=== PATIENT | female | born 1960 | race Caucasian/White ===

== ENCOUNTER 2019-12-21 17:18 | Emergency (ER) | payer MEDICARE, MEDICAID ==
[~2019-12-21] VITALS: Ht 162.5 cm; Wt 108.9 kg
[~2019-12-21 17:18] MED LIST: ACTOS30 MG; AMBIEN10 M1 PO; AMBIEN5 MG; ASPIRIN81 M1 PO; AUGMENTIN 875 M1 TAB PO; BENAZEPRIL HCL; BENAZEPRIL40 MG PO; CIPRODEX 0.3%-7.5 ML OT; COUMADIN5 MG PO; COUMADIN7.5 M1 PO; COUMADIN7.5 MG; CRESTOR40 M1 PO; DAYPRO600 M1 PO; DIFLUCAN150 MG PO; ENTRESTO 24 MG1 EACH PO; ENTRESTO 49 MG1 EACH PO; FENOFIBRATE160 MG PO; FLUOXETINE HCL20 MG; GABAPENTIN300 M1; GABAPENTIN300 MG PO; HUMALOG100 U/ML; HUMALOG100 U/ML SC; INVOKANA300 M1 PO; LANTUS SOL100 UNIT/1 SQ; LASIX40 MG; LASIX40 MG PO; LIPITOR40 MG PO; LOPRESSOR100 MG; LOPRESSOR50 M1 PO; LOVAZA1 GM; LOVAZA1 GM PO; Lantus SC; METFORMIN HCL1000 MG PO; METFORMIN1000 MG PO; METOPROLOL SUC100 MG PO; MOTRIN800 MG PO; NEURONTIN300 MG PO; NITROSTAT0.4 MG SL; NORCO 5-325 TA1 EACH PO; NOVOLOG10 ML SC; PERCOCET 325 MG1 TA6; PERCOCET 325 MG1 TA6 PO; PLAVIX75 M1 PO; PLAVIX75 MG; PROZAC20 MG PO; TRAMADOL HCL50 MG PO; VENTOLIN; VICODIN 5/500 505 MG PO; VICTOZA 3-PAK6 MG/ML SC; VICTOZA6 MG/ML SC; VITAMIN D350 MC2 PO; VITAMIN D400 IU; Vicodin 5/500 505 MG PO; WELCHOL625 MG; WELCHOL625 MG PO
== END 2019-12-21 20:55 | disposition home or self-care (01) ==
LOC: ED 17:18
DX: S83.92XA Sprain of unspecified site of left knee, initial encounter (principal); Z79.899 Other long term (current) drug therapy; Z79.84 Long term (current) use of oral hypoglycemic drugs; Z91.041 Radiographic dye allergy status; X50.1XXA Overexertion from prolonged static or awkward postures, initial encounter; Y93.89 Activity, other specified; Y92.89 Other specified places as the place of occurrence of the external cause; Y99.8 Other external cause status

== ENCOUNTER → 2020-01-01 | Outpatient (CLI) | payer MEDICARE, MEDICAID | END | disposition home or self-care (01) | LOC: ORTHO 00:59 | PROVIDERS: ATTEND Orthopaedic Surgery | DX: M17.12 Unilateral primary osteoarthritis, left knee (principal) ==

== ENCOUNTER → 2020-01-08 | Outpatient (CLI) | payer MEDICARE, MEDICAID ==
[~2020-01-08] MED LIST changes: +ALDACTONE25 M1 PO; +BASAG SOL SC; +BYDUREON P2 MG/0.65 SQ; +CLARITIN10 MG PO; +FARXIGA10 M1 PO; +KLOR-CON M2020 ME1 PO; +LOSARTAN POTASS25 M1 PO; +METOPROLOL SUCC25 M2 PO; +ROSUVASTATIN CA40 MG PO; +SINGULAIR10 M1 PO
== END | disposition home or self-care (01) ==
LOC: MAMMO 16:00
PROVIDERS: ATTEND Family Medicine
DX: Z12.31 Encounter for screening mammogram for malignant neoplasm of breast (principal)

== ENCOUNTER 2020-01-25 15:15 | Inpatient (IN) | payer MEDICARE, MEDICAID ==
[~2020-01-25] VITALS: Ht 163.8 cm; Wt 105.7 kg
[2020-01-25] VITALS (7 sets, daily range): BP systolic 70–91; BP diastolic 00–57
[~2020-01-25 15:15] MED LIST changes: -ALDACTONE25 M1 PO; -BASAG SOL SC; -BYDUREON P2 MG/0.65 SQ; -CLARITIN10 MG PO; -FARXIGA10 M1 PO; -KLOR-CON M2020 ME1 PO; -LOSARTAN POTASS25 M1 PO; -METOPROLOL SUCC25 M2 PO; -ROSUVASTATIN CA40 MG PO; -SINGULAIR10 M1 PO
[2020-01-25 16:09] LABS: BASO # 0.1 10*3/uL (0.0-0.1); BASO % 0.5 % (0.0-1.0); EOS # 0.1 10*3/uL (0.0-0.4); EOS % 0.5 % (1.0-4.0); HEMATOCRIT 44.9 % (37.0-47.0); LYMPH # 3.7 10*3/uL (1.3-4.4); LYMPH % 39.9 % (27.0-41.0); MEAN CELL VOLUME 96.1 fl (81.0-99.0); MEAN CORPUSCULAR HGB 31.3 pg (27.0-31.0); MEAN CORPUSCULAR HGB CONC 32.5 g/dl (33.0-37.0); MEAN PLATELET VOLUME 10.1 fl (9.6-12.3); MONO # 0.6 10*3/uL (0.1-1.0); MONO % 6.5 % (3.0-9.0); NEUT # 4.9 10*3/uL (2.3-7.9); NEUT % 52.3 % (47.0-73.0); PLATELET COUNT AUTOMATED 273 10*3/uL (130-400); RED BLOOD COUNT 4.67 10*6/uL (4.10-5.10); RED CELL DISTRI WIDTH 13.3 % (0-14.5); WHITE BLOOD COUNT 9.3 10*3/uL (4.8-10.8)
[2020-01-25 16:21] LABS: ACT PARTIAL THROMBO TIME 25.9 SECONDS (20.0-32.1)
[2020-01-25 16:26] LABS: ALBUMIN 3.8 gm/dl (3.1-4.5); ALKALINE PHOSPHATASE 58 U/L (45-117); BUN 41 mg/dl (7-24); CHLORIDE 105 mmol/L (98-107); CREATININE 1.56 mg/dL (0.55-1.02); LIPASE 321 U/L (73-393); POTASSIUM 4.7 mmol/L (3.5-5.1); SGOT/AST 14 IU/L (3-35); SGPT/ALT 32 U/L (12-78); SODIUM 132 mmol/L (136-145); TROPONIN I < 0.015 ng/ml (<0.045)
[2020-01-26] VITALS (15 sets, daily range): BP systolic 91–116; BP diastolic 30–77
[2020-01-26 03:21] LABS: BILIRUBIN Negative (Negative); BLOOD 1+ (Negative); CLARITY Cloudy (Clear); COLOR Yellow (Yellow); GLUCOSE 3+ (Negative); KETONE Trace (Negative); LEUKO ESTERASE Trace (Negative); NITRITE Negative (Negative); SPECIFIC GRAVITY 1.025 (1.001-1.030); UROBILINOGEN 0.2 E.U./dl (0.0-1.0)
[2020-01-26 03:52] LABS: BACTERIA 3+; EPITHELIAL CELLS TNTC; WBC 41-50 wbc/hpf (0-5)
[2020-01-26 06:05] LABS: BASO % 0.5 % (0.0-1.0); EOS # 0.1 10*3/uL (0.0-0.4); EOS % 1.3 % (1.0-4.0); HEMATOCRIT 38.8 % (37.0-47.0); LYMPH # 3.7 10*3/uL (1.3-4.4); LYMPH % 42.1 % (27.0-41.0); MEAN CELL VOLUME 98.7 fl (81.0-99.0); MEAN CORPUSCULAR HGB 32.1 pg (27.0-31.0); MEAN CORPUSCULAR HGB CONC 32.5 g/dl (33.0-37.0); MEAN PLATELET VOLUME 10.2 fl (9.6-12.3); MONO # 0.7 10*3/uL (0.1-1.0); MONO % 7.8 % (3.0-9.0); NEUT # 4.2 10*3/uL (2.3-7.9); NEUT % 48.1 % (47.0-73.0); PLATELET COUNT AUTOMATED 214 10*3/uL (130-400); RED BLOOD COUNT 3.93 10*6/uL (4.10-5.10); RED CELL DISTRI WIDTH 13.2 % (0-14.5); WHITE BLOOD COUNT 8.8 10*3/uL (4.8-10.8)
[2020-01-26 06:29] LABS: ALBUMIN 3.2 gm/dl (3.1-4.5); BUN 37 mg/dl (7-24); CHLORIDE 111 mmol/L (98-107); CHOLESTEROL 64 mg/dL (<200); CREATININE 1.14 mg/dL (0.55-1.02); HDL CHOLESTEROL 24 mg/dl (40-60); POTASSIUM 4.4 mmol/L (3.5-5.1); SGOT/AST 22 IU/L (3-35); SGPT/ALT 34 U/L (12-78); SODIUM 138 mmol/L (136-145); TRIGLYCERIDES 291 mg/dl (<150); VLDL CHOLESTEROL 58 mg/dL (6-40)
[2020-01-26 06:36] LABS: ALKALINE PHOSPHATASE 45 U/L (45-117); FREE T4 0.88 ng/dl (0.76-1.46); THYROID STIM HORMONE (HS) 0.595 uIU/ml (0.358-4.75); TOTAL PROTEIN 6.3 gm/dL (6.4-8.2)
[2020-01-26 08:01] LABS: VITAMIN D, 25-HYDROXY 28.2 ng/mL (30-100)
[2020-01-26 08:02] LABS: PTH INTACT 8.3 pg/mL (18.5-88.0)
[2020-01-27 00:05] VITALS: BP 115/64
[2020-01-27 05:18] VITALS: BP 92/45
[2020-01-27 05:54] LABS: ALBUMIN 3.5 gm/dl (3.1-4.5); CHLORIDE 108 mmol/L (98-107); SODIUM 138 mmol/L (136-145)
[2020-01-27 05:57] LABS: ALKALINE PHOSPHATASE 50 U/L (45-117); CREATININE 0.94 mg/dL (0.55-1.02); SGOT/AST 14 IU/L (3-35); SGPT/ALT 33 U/L (12-78)
[2020-01-27 05:58] LABS: BUN 24 mg/dl (7-24)
[2020-01-27 07:06] LABS: BASO % 0.4 % (0.0-1.0); EOS # 0.2 10*3/uL (0.0-0.4); EOS % 1.6 % (1.0-4.0); HEMATOCRIT 40.1 % (37.0-47.0); LYMPH # 4.9 10*3/uL (1.3-4.4); LYMPH % 52.6 % (27.0-41.0); MEAN CELL VOLUME 95.9 fl (81.0-99.0); MEAN CORPUSCULAR HGB 31.6 pg (27.0-31.0); MEAN CORPUSCULAR HGB CONC 32.9 g/dl (33.0-37.0); MEAN PLATELET VOLUME 10.1 fl (9.6-12.3); MONO # 0.7 10*3/uL (0.1-1.0); MONO % 7.6 % (3.0-9.0); NEUT # 3.5 10*3/uL (2.3-7.9); NEUT % 37.6 % (47.0-73.0); PLATELET COUNT AUTOMATED 226 10*3/uL (130-400); RED BLOOD COUNT 4.18 10*6/uL (4.10-5.10); RED CELL DISTRI WIDTH 13.3 % (0-14.5); WHITE BLOOD COUNT 9.3 10*3/uL (4.8-10.8)
[2020-01-27 07:55] VITALS: BP 89/29
[2020-01-27] MEDS ORDERED: ROSUVASTATIN CA40 MG PO (07:59)
[2020-01-27] MEDS ORDERED: BYDUREON P2 MG/0.65 SQ (07:59)
[2020-01-27] MEDS ORDERED: CLARITIN10 MG PO (08:00)
[2020-01-27] MEDS ORDERED: SINGULAIR10 M1 PO (08:02)
[2020-01-27] MEDS ORDERED: ALDACTONE25 M1 PO (08:04)
[2020-01-27] MEDS ORDERED: BASAG SOL SC (08:06)
[2020-01-27] MEDS ORDERED: FARXIGA10 M1 PO (08:07)
[2020-01-27] MEDS ORDERED: KLOR-CON M2020 ME1 PO (08:09)
[2020-01-27 10:35] VITALS: BP 104/34
[2020-01-27 12:09] VITALS: BP 109/52
[2020-01-27] MEDS ORDERED: LOSARTAN POTASS25 M1 PO (13:28)
[2020-01-27] MEDS ORDERED: METOPROLOL SUCC25 M2 PO (13:28)
[2020-01-27 13:54] VITALS: BP 98/39
== END 2020-01-27 19:38 | disposition home or self-care (01) | DRG 314 ==
LOC: ED 15:15 → EDHOLD 17:22
PROVIDERS: Emergency Medicine; Internal Medicine; ADMIT Family Medicine; ATTEND Family Medicine
DX: I95.9 Hypotension, unspecified (principal); N17.0 Acute kidney failure with tubular necrosis; I50.20 Unspecified systolic (congestive) heart failure; E87.1 Hypo-osmolality and hyponatremia; E86.0 Dehydration; I25.10 Atherosclerotic heart disease of native coronary artery without angina pectoris; E78.1 Pure hyperglyceridemia; E78.5 Hyperlipidemia, unspecified; F41.9 Anxiety disorder, unspecified; F32.9 Major depressive disorder, single episode, unspecified; E11.649 Type 2 diabetes mellitus with hypoglycemia without coma; E83.52 Hypercalcemia; F17.210 Nicotine dependence, cigarettes, uncomplicated; Z96.651 Presence of right artificial knee joint; I11.0 Hypertensive heart disease with heart failure; E11.65 Type 2 diabetes mellitus with hyperglycemia; E83.39 Other disorders of phosphorus metabolism; Z91.041 Radiographic dye allergy status; Z90.49 Acquired absence of other specified parts of digestive tract; Z95.0 Presence of cardiac pacemaker; Z82.49 Family history of ischemic heart disease and other diseases of the circulatory system; Z83.3 Family history of diabetes mellitus; Z79.82 Long term (current) use of aspirin; Z79.84 Long term (current) use of oral hypoglycemic drugs; Z79.899 Other long term (current) drug therapy

== ENCOUNTER → 2020-07-03 | Day surgery (SDC) | payer OTHER, MEDICAID ==
[~2020-07-03] VITALS: Ht 163.8 cm; Wt 97.5 kg
[~2020-07-03] MED LIST changes: +ALDACTONE25 M1 PO; +BASAG SOL SC; +BUPROPION HYDR150 M1 PO; +BYDUREON P2 MG/0.65 SQ; +CETIRIZINE10 MG PO; +CLARITIN10 MG PO; +FARXIGA10 M1 PO; +KLOR-CON M2020 ME1 PO; +LANTUS SOL100 UNIT/1 SC; +LOSARTAN POTASS25 M1 PO; +METOPROLOL SUCC25 M2 PO; +ROSUVASTATIN CA40 MG PO; +SINGULAIR10 M1 PO
[2020-07-03 09:05] VITALS: BP 116/70
[2020-07-03 10:54] VITALS: BP 100/53
[2020-07-03 11:07] VITALS: BP 106/54
[2020-07-03 11:25] VITALS: BP 121/72
== END | disposition home or self-care (01) ==
LOC: SDC 06-30 09:30
PROVIDERS: ATTEND Surgery
DX: Z12.11 Encounter for screening for malignant neoplasm of colon (principal); D12.3 Benign neoplasm of transverse colon; I11.0 Hypertensive heart disease with heart failure; I50.9 Heart failure, unspecified; E78.5 Hyperlipidemia, unspecified; G47.00 Insomnia, unspecified; F32.9 Major depressive disorder, single episode, unspecified; E11.40 Type 2 diabetes mellitus with diabetic neuropathy, unspecified; Z86.718 Personal history of other venous thrombosis and embolism; Z95.810 Presence of automatic (implantable) cardiac defibrillator; F17.210 Nicotine dependence, cigarettes, uncomplicated; Z96.651 Presence of right artificial knee joint; Z79.899 Other long term (current) drug therapy

== ENCOUNTER → 2020-12-12 | Outpatient (CLI) | payer OTHER, MEDICAID | END | disposition home or self-care (01) | LOC: COVID19 18:31 | PROVIDERS: ATTEND Internal Medicine | DX: U07.1 COVID-19 (principal) ==

== ENCOUNTER → 2021-03-02 | Outpatient (CLI) | payer OTHER, MEDICAID | END | disposition home or self-care (01) | LOC: RAD 14:15 | PROVIDERS: ATTEND Family Medicine | DX: S32.000A Wedge compression fracture of unspecified lumbar vertebra, initial encounter for closed fracture (principal); M47.814 Spondylosis without myelopathy or radiculopathy, thoracic region; M47.817 Spondylosis without myelopathy or radiculopathy, lumbosacral region; X58.XXXA Exposure to other specified factors, initial encounter ==

== ENCOUNTER → 2021-06-05 | Outpatient (CLI) | payer MEDICARE, MEDICAID | END | disposition home or self-care (01) | LOC: US 10:44 | PROVIDERS: ATTEND Family Medicine | DX: I82.442 Acute embolism and thrombosis of left tibial vein (principal) ==

== ENCOUNTER 2021-07-14 15:14 | Inpatient (IN) | payer MEDICARE, MEDICAID ==
[~2021-07-14] VITALS: Ht 162.6 cm; Wt 94.3 kg
[2021-07-14 15:22] VITALS: BP 111/40
[2021-07-14 15:44] LABS: BASO % 0.4 % (0.0-1.0); EOS # 0.1 10*3/uL (0.0-0.4); EOS % 0.9 % (1.0-4.0); HEMATOCRIT 27.9 % (37.0-47.0); LYMPH # 1.8 10*3/uL (1.3-4.4); LYMPH % 25.8 % (27.0-41.0); MEAN CELL VOLUME 94.9 fl (81.0-99.0); MEAN CORPUSCULAR HGB 29.3 pg (27.0-31.0); MEAN CORPUSCULAR HGB CONC 30.8 g/dl (33.0-37.0); MEAN PLATELET VOLUME 9.2 fl (9.6-12.3); MONO # 0.6 10*3/uL (0.1-1.0); MONO % 7.8 % (3.0-9.0); NEUT # 4.5 10*3/uL (2.3-7.9); NEUT % 64.8 % (47.0-73.0); NUCLEATED RED BLOOD CELL 0.3 % (0.0-0.0); PLATELET COUNT AUTOMATED 424 10*3/uL (130-400); RED BLOOD COUNT 2.94 10*6/uL (4.10-5.10); RED CELL DISTRI WIDTH 16.6 % (0-14.5)
[2021-07-14 16:02] LABS: ALKALINE PHOSPHATASE 102 U/L (45-117); BUN 15 mg/dl (7-24); CHLORIDE 102 mmol/L (98-107); CREATININE 1.05 mg/dL (0.55-1.02); POTASSIUM 4.7 mmol/L (3.5-5.1); SGOT/AST 15 IU/L (3-35); SGPT/ALT 23 U/L (12-78); SODIUM 134 mmol/L (136-145)
[2021-07-14] MEDS ORDERED: CYMBALTA60 MG PO (17:09)
[2021-07-14] MEDS ORDERED: VITAMIN D3125 MC1 PO (17:10)
[2021-07-14] MEDS ORDERED: ELIQUIS5 M1 PO (17:11)
[2021-07-14] MEDS ORDERED: B12 ACTIVE1000 MCG PO (17:11)
[2021-07-14 19:01] VITALS: BP 93/39
[2021-07-15] VITALS (10 sets, daily range): BP systolic 110–139; BP diastolic 55–85
[2021-07-15 05:51] LABS: BUN 13 mg/dl (7-24); CHLORIDE 106 mmol/L (98-107); CREATININE 0.84 mg/dL (0.55-1.02); SODIUM 136 mmol/L (136-145)
[2021-07-15 06:25] LABS: BASO % 0.5 % (0.0-1.0); EOS # 0.1 10*3/uL (0.0-0.4); EOS % 1.9 % (1.0-4.0); HEMATOCRIT 25.9 % (37.0-47.0); LYMPH # 2.5 10*3/uL (1.3-4.4); LYMPH % 39.6 % (27.0-41.0); MEAN CELL VOLUME 94.9 fl (81.0-99.0); MEAN CORPUSCULAR HGB 28.6 pg (27.0-31.0); MEAN CORPUSCULAR HGB CONC 30.1 g/dl (33.0-37.0); MEAN PLATELET VOLUME 9.7 fl (9.6-12.3); MONO # 0.6 10*3/uL (0.1-1.0); NEUT % 47.7 % (47.0-73.0); NUCLEATED RED BLOOD CELL 0.3 % (0.0-0.0); PLATELET COUNT AUTOMATED 431 10*3/uL (130-400); RED BLOOD COUNT 2.73 10*6/uL (4.10-5.10); RED CELL DISTRI WIDTH 16.8 % (0-14.5); WHITE BLOOD COUNT 6.4 10*3/uL (4.8-10.8)
[2021-07-15] MEDS ORDERED: LOSARTAN POTASS25 M1 PO (10:36)
[2021-07-15] MEDS ORDERED: BREO ELLIPTA 11 EACH INH (10:38)
[2021-07-15] MEDS ORDERED: PROAIR RESPICL90 MCG INH (10:38)
[2021-07-15] MEDS ORDERED: HYDROCODONE-AC1 EAC2 PO (10:41)
[2021-07-15] MEDS ORDERED: SEPTDS PO (10:41)
[2021-07-16] VITALS: BP 116/41
[2021-07-16 04:57] LABS: BUN 12 mg/dl (7-24); CHLORIDE 107 mmol/L (98-107); CREATININE 0.87 mg/dL (0.55-1.02); POTASSIUM 3.5 mmol/L (3.5-5.1); SODIUM 138 mmol/L (136-145)
[2021-07-16 04:59] LABS: IRON 17 ug/dL (50-170); LDH 176 U/L (84-246); TOTAL IRON BINDING CAPACITY 375 ug/dl (250-450)
[2021-07-16 06:21] LABS: BASO % 0.5 % (0.0-1.0); EOS # 0.2 10*3/uL (0.0-0.4); EOS % 2.2 % (1.0-4.0); HEMATOCRIT 26.7 % (37.0-47.0); LYMPH # 2.8 10*3/uL (1.3-4.4); LYMPH % 34.8 % (27.0-41.0); MEAN CORPUSCULAR HGB 28.2 pg (27.0-31.0); MEAN CORPUSCULAR HGB CONC 30.3 g/dl (33.0-37.0); MEAN PLATELET VOLUME 9.5 fl (9.6-12.3); MONO # 0.8 10*3/uL (0.1-1.0); MONO % 9.2 % (3.0-9.0); NEUT # 4.3 10*3/uL (2.3-7.9); NEUT % 53.1 % (47.0-73.0); PLATELET COUNT AUTOMATED 474 10*3/uL (130-400); RED BLOOD COUNT 2.87 10*6/uL (4.10-5.10); RED CELL DISTRI WIDTH 16.8 % (0-14.5); WHITE BLOOD COUNT 8.2 10*3/uL (4.8-10.8)
[2021-07-16 06:23] LABS: RETICULOCYTE % 2.91 % (0.50-2.50)
[2021-07-16 08:00] VITALS: BP 126/61
[2021-07-16 12:00] VITALS: BP 120/55
[2021-07-16 16:00] VITALS: BP 111/68
[2021-07-16 20:00] VITALS: BP 106/66
[2021-07-17] VITALS: BP 112/50
[2021-07-17 04:06] LABS: TOTAL PROTEIN, SERUM 5.6 g/dL (6.0-8.5)
[2021-07-17 06:18] LABS: BASO % 0.4 % (0.0-1.0); EOS # 0.2 10*3/uL (0.0-0.4); EOS % 1.8 % (1.0-4.0); HEMATOCRIT 26.8 % (37.0-47.0); LYMPH # 2.7 10*3/uL (1.3-4.4); LYMPH % 29.9 % (27.0-41.0); MEAN CELL VOLUME 93.1 fl (81.0-99.0); MEAN CORPUSCULAR HGB 28.5 pg (27.0-31.0); MEAN CORPUSCULAR HGB CONC 30.6 g/dl (33.0-37.0); MEAN PLATELET VOLUME 9.3 fl (9.6-12.3); MONO # 0.9 10*3/uL (0.1-1.0); MONO % 9.9 % (3.0-9.0); NEUT # 5.2 10*3/uL (2.3-7.9); NEUT % 57.8 % (47.0-73.0); NUCLEATED RED BLOOD CELL 0.3 % (0.0-0.0); PLATELET COUNT AUTOMATED 463 10*3/uL (130-400); RED BLOOD COUNT 2.88 10*6/uL (4.10-5.10); RED CELL DISTRI WIDTH 17.1 % (0-14.5); WHITE BLOOD COUNT 9.1 10*3/uL (4.8-10.8)
[2021-07-17 08:00] VITALS: BP 93/60
[2021-07-17] MEDS ORDERED: DOCUSATE SOD100 MG PO (11:02)
[2021-07-17] MEDS ORDERED: Carafate1 GM PO (11:02)
[2021-07-17] MEDS ORDERED: PANTOPRAZOLE SO20 MG PO (11:02)
[2021-07-17 15:07] LABS: A/G RATIO 1.2 (0.7-1.7); ALBUMIN 3.1 g/dL (2.9-4.4); ALPHA-1-GLOBULIN 0.2 g/dL (0.0-0.4); ALPHA-2-GLOBULIN 0.8 g/dL (0.4-1.0); ANTICARDIOLIPIN AB, IGG, QN <9 GPL U/mL (0-14); ANTICARDIOLIPIN AB, IGM, QN <9 MPL U/mL (0-12); BETA GLOBULIN 0.9 g/dL (0.7-1.3); CARDIOLIPIN AB IGA <9 APL U/mL (0-11); GAMMA GLOBULIN 0.6 g/dL (0.4-1.8); GLOBULIN, TOTAL 2.5 g/dL (2.2-3.9); M-SPIKE Not Observed g/dL (Not Observed); PE INTERPRETATION Comment: (.)
== END 2021-07-17 11:57 | disposition home or self-care (01) | DRG 377 ==
LOC: ED 15:14 → 4E 16:14 → EDHOLD 16:14 → 4E 07-15 09:07
PROVIDERS: Hospitalist; Registered Nurse; Student in an Organized Health Care Education/Training Program; ADMIT Internal Medicine; ATTEND Internal Medicine
PROC: 0DB68ZX Excision of Stomach, Via Natural or Artificial Opening Endoscopic, Diagnostic (ICD-10-PCS; principal; 2021-07-15)
DX: K25.4 Chronic or unspecified gastric ulcer with hemorrhage (principal); N17.0 Acute kidney failure with tubular necrosis; E87.1 Hypo-osmolality and hyponatremia; I50.20 Unspecified systolic (congestive) heart failure; D64.89 Other specified anemias; I25.10 Atherosclerotic heart disease of native coronary artery without angina pectoris; E11.65 Type 2 diabetes mellitus with hyperglycemia; F41.9 Anxiety disorder, unspecified; F32.A Depression, unspecified; Z96.651 Presence of right artificial knee joint; E55.9 Vitamin D deficiency, unspecified; I11.0 Hypertensive heart disease with heart failure; J30.2 Other seasonal allergic rhinitis; F17.210 Nicotine dependence, cigarettes, uncomplicated; Z71.6 Tobacco abuse counseling; Z90.49 Acquired absence of other specified parts of digestive tract; Z91.041 Radiographic dye allergy status; Z79.899 Other long term (current) drug therapy; Z82.49 Family history of ischemic heart disease and other diseases of the circulatory system

== ENCOUNTER → 2021-07-23 | Outpatient (CLI) | payer MEDICARE, MEDICAID ==
[~2021-07-23] MED LIST changes: +B12 ACTIVE1000 MCG PO; +BREO ELLIPTA 11 EACH INH; +CYMBALTA60 MG PO; +Carafate1 GM PO; +DOCUSATE SOD100 MG PO; +ELIQUIS5 M1 PO; +HYDROCODONE-AC1 EAC2 PO; +PANTOPRAZOLE SO20 MG PO; +PROAIR RESPICL90 MCG INH; +SEPTDS PO; +VITAMIN D3125 MC1 PO
== END | disposition home or self-care (01) ==
LOC: RAD 12:44
PROVIDERS: ATTEND Family Medicine
DX: M25.762 Osteophyte, left knee (principal); M25.761 Osteophyte, right knee; I70.203 Unspecified atherosclerosis of native arteries of extremities, bilateral legs

== ENCOUNTER → 2021-07-30 | Day surgery (SDC) | payer MEDICARE, MEDICAID ==
[~2021-07-30] VITALS: Ht 162.5 cm; Wt 95.3 kg
[2021-07-30 11:17] VITALS: BP 97/54
[2021-07-30 11:32] VITALS: BP 103/59
[2021-07-30 11:48] VITALS: BP 112/68
== END | disposition home or self-care (01) ==
LOC: SDC 07-29 12:30
PROVIDERS: ATTEND Surgery Vascular Surgery
DX: Z45.89 Encounter for adjustment and management of other implanted devices (principal); I82.409 Acute embolism and thrombosis of unspecified deep veins of unspecified lower extremity; I11.0 Hypertensive heart disease with heart failure; I50.9 Heart failure, unspecified; F41.9 Anxiety disorder, unspecified; E11.9 Type 2 diabetes mellitus without complications; F32.9 Major depressive disorder, single episode, unspecified; Z96.651 Presence of right artificial knee joint; Z95.0 Presence of cardiac pacemaker; E78.00 Pure hypercholesterolemia, unspecified; Z79.899 Other long term (current) drug therapy

== ENCOUNTER 2022-02-01 16:45 | Emergency (ER) | payer OTHER, MEDICAID ==
[~2022-02-01] VITALS: Ht 162.5 cm; Wt 90.7 kg
[~2022-02-01 16:45] MED LIST changes: -AUGMENTIN XR 11 EACH PO
[2022-02-01] MEDS ORDERED: AUGMENTIN XR 11 EACH PO ×3 (18:20→18:44)
== END 2022-02-01 18:40 | disposition home or self-care (01) ==
LOC: ED 16:45
DX: S61.411A Laceration without foreign body of right hand, initial encounter (principal); Z91.041 Radiographic dye allergy status; Z79.899 Other long term (current) drug therapy; Z98.890 Other specified postprocedural states; Z90.49 Acquired absence of other specified parts of digestive tract; F17.200 Nicotine dependence, unspecified, uncomplicated; W54.0XXA Bitten by dog, initial encounter; Y93.89 Activity, other specified; Y92.89 Other specified places as the place of occurrence of the external cause; Y99.8 Other external cause status

== ENCOUNTER → 2022-02-01 | Outpatient (CLI) | payer OTHER, MEDICAID ==
[~2022-02-01] MED LIST changes: +AUGMENTIN XR 11 EACH PO
[2022-02-01 16:32] LABS: BASO # 0.1 10*3/uL (0.0-0.1); BASO % 0.5 % (0.0-1.0); EOS # 0.2 10*3/uL (0.0-0.4); HEMATOCRIT 48.1 % (37.0-47.0); LYMPH # 4.3 10*3/uL (1.3-4.4); LYMPH % 39.4 % (27.0-41.0); MEAN CELL VOLUME 95.4 fl (81.0-99.0); MEAN CORPUSCULAR HGB 31.2 pg (27.0-31.0); MEAN CORPUSCULAR HGB CONC 32.6 g/dl (33.0-37.0); MEAN PLATELET VOLUME 9.4 fl (9.6-12.3); MONO # 0.7 10*3/uL (0.1-1.0); MONO % 6.6 % (3.0-9.0); NEUT # 5.6 10*3/uL (2.3-7.9); NEUT % 51.3 % (47.0-73.0); PLATELET COUNT AUTOMATED 296 10*3/uL (130-400); RED BLOOD COUNT 5.04 10*6/uL (4.10-5.10); RED CELL DISTRI WIDTH 14.7 % (0-14.5); WHITE BLOOD COUNT 10.8 10*3/uL (4.8-10.8)
[2022-02-01 16:49] LABS: ALKALINE PHOSPHATASE 62 U/L (45-117); BUN 10 mg/dl (7-24); CHLORIDE 103 mmol/L (98-107); CREATININE 0.86 mg/dL (0.55-1.02); IRON 64 ug/dL (50-170); POTASSIUM 3.8 mmol/L (3.5-5.1); SGPT/ALT 37 U/L (12-78); SODIUM 135 mmol/L (136-145); TOTAL PROTEIN 7.5 gm/dL (6.4-8.2)
[2022-02-02 10:06] LABS: CREATININE,URINE 29.4 mg/dL (Not Estab.)
== END | disposition home or self-care (01) ==
LOC: LAB 15:55
PROVIDERS: ATTEND Family Medicine
DX: I11.0 Hypertensive heart disease with heart failure (principal); I50.9 Heart failure, unspecified; E11.65 Type 2 diabetes mellitus with hyperglycemia; D50.9 Iron deficiency anemia, unspecified; R42 Dizziness and giddiness; Z95.810 Presence of automatic (implantable) cardiac defibrillator

== ENCOUNTER → 2022-02-08 | Outpatient (CLI) | payer OTHER, MEDICAID ==
[~2022-02-08] MED LIST changes: +AUGMENTIN XR 11 EACH PO
== END | disposition home or self-care (01) ==
LOC: CARD 11:12
PROVIDERS: ATTEND Internal Medicine
DX: I34.0 Nonrheumatic mitral (valve) insufficiency (principal); I51.7 Cardiomegaly; I25.5 Ischemic cardiomyopathy

== ENCOUNTER → 2022-03-26 | Outpatient (CLI) | payer OTHER, MEDICAID | END | disposition home or self-care (01) | LOC: CT 15:00 | PROVIDERS: ATTEND Student in an Organized Health Care Education/Training Program | DX: M47.24 Other spondylosis with radiculopathy, thoracic region (principal); N28.1 Cyst of kidney, acquired ==

== ENCOUNTER 2022-04-20 16:36 | Emergency (ER) | payer OTHER, MEDICAID ==
[~2022-04-20] VITALS: Ht 162.5 cm; Wt 93.0 kg
[2022-04-20 17:41] LABS: BASO % 0.5 % (0.0-1.0); EOS % 0.5 % (1.0-4.0); HEMATOCRIT 51.2 % (37.0-47.0); LYMPH # 3.4 10*3/uL (1.3-4.4); LYMPH % 37.7 % (27.0-41.0); MEAN CELL VOLUME 97.2 fl (81.0-99.0); MEAN CORPUSCULAR HGB 30.7 pg (27.0-31.0); MEAN CORPUSCULAR HGB CONC 31.6 g/dl (33.0-37.0); MEAN PLATELET VOLUME 9.5 fl (9.6-12.3); MONO # 0.6 10*3/uL (0.1-1.0); MONO % 6.4 % (3.0-9.0); NEUT # 4.9 10*3/uL (2.3-7.9); NEUT % 54.7 % (47.0-73.0); PLATELET COUNT AUTOMATED 254 10*3/uL (130-400); RED BLOOD COUNT 5.27 10*6/uL (4.10-5.10); RED CELL DISTRI WIDTH 14.2 % (0-14.5); WHITE BLOOD COUNT 8.9 10*3/uL (4.8-10.8)
[2022-04-20 17:46] LABS: BILIRUBIN Negative (Negative); BLOOD 1+ (Negative); CLARITY Cloudy (Clear); COLOR Yellow (Yellow); GLUCOSE 3+ (Negative); KETONE 1+ (Negative); LEUKO ESTERASE Negative (Negative); NITRITE Negative (Negative); PH 5.5 (4.5-8.0); SPECIFIC GRAVITY 1.025 (1.001-1.030)
[2022-04-20 18:02] LABS: ALKALINE PHOSPHATASE 75 U/L (46-116); BUN 7 mg/dl (9-23); CHLORIDE 102 mmol/L (98-107); LIPASE 39 U/L (12-53); POTASSIUM 3.4 mmol/L (3.4-5.1); SGPT/ALT 33 U/L (10-49); TOTAL PROTEIN 6.7 gm/dL (6.0-8.0)
[2022-04-20 18:03] LABS: BACTERIA 2+; YEAST 1+
[2022-04-20] MEDS ORDERED: SEPTDS PO (18:09)
[2022-04-20] MEDS ORDERED: Ondansetron4 MG PO (18:11)
== END 2022-04-20 18:28 | disposition home or self-care (01) ==
LOC: ED 16:36
PROVIDERS: Emergency Medicine
DX: R10.9 Unspecified abdominal pain (principal); R11.2 Nausea with vomiting, unspecified; R30.0 Dysuria; Z91.041 Radiographic dye allergy status; Z79.899 Other long term (current) drug therapy; Z90.49 Acquired absence of other specified parts of digestive tract; Z98.890 Other specified postprocedural states; Z87.891 Personal history of nicotine dependence

== ENCOUNTER → 2022-05-13 | Outpatient (CLI) | payer OTHER, MEDICAID ==
[~2022-05-13] MED LIST changes: +Ondansetron4 MG PO
== END | disposition home or self-care (01) ==
LOC: CT 14:00
PROVIDERS: ATTEND Family Medicine
DX: N12 Tubulo-interstitial nephritis, not specified as acute or chronic (principal); N28.1 Cyst of kidney, acquired; K59.00 Constipation, unspecified; M48.061 Spinal stenosis, lumbar region without neurogenic claudication

== ENCOUNTER → 2022-06-04 | Outpatient (CLI) | payer OTHER, MEDICAID ==
[2022-06-04 13:20] LABS: ALKALINE PHOSPHATASE 92 U/L (46-116); BUN 11 mg/dl (9-23); CHLORIDE 104 mmol/L (98-107); POTASSIUM 4.6 mmol/L (3.4-5.1); SGPT/ALT 91 U/L (10-49); TOTAL PROTEIN 6.3 gm/dL (6.0-8.0)
== END | disposition home or self-care (01) ==
LOC: LAB 12:06
PROVIDERS: Student in an Organized Health Care Education/Training Program; ATTEND Family Medicine
DX: R06.02 Shortness of breath (principal); R60.0 Localized edema

== ENCOUNTER → 2022-06-10 | Day surgery (SDC) | payer OTHER, MEDICAID ==
[~2022-06-10] VITALS: Ht 162.5 cm; Wt 95.3 kg
[~2022-06-10] MED LIST changes: +CARAFATE1 G1 PO; +FUROSEMIDE20 M1 PO; +PROTONIX40 MG PO
[2022-06-10 09:49] VITALS: BP 113/50
[2022-06-10 10:40] VITALS: BP 103/72
[2022-06-10 10:55] VITALS: BP 114/61
[2022-06-10 11:10] VITALS: BP 125/74
== END | disposition home or self-care (01) ==
LOC: SDC 06-07 13:15
PROVIDERS: ATTEND Surgery
DX: R10.10 Upper abdominal pain, unspecified (principal); K29.50 Unspecified chronic gastritis without bleeding; I11.0 Hypertensive heart disease with heart failure; I50.9 Heart failure, unspecified; I48.91 Unspecified atrial fibrillation; E11.40 Type 2 diabetes mellitus with diabetic neuropathy, unspecified; F32.A Depression, unspecified; E78.00 Pure hypercholesterolemia, unspecified; F17.210 Nicotine dependence, cigarettes, uncomplicated; Z90.49 Acquired absence of other specified parts of digestive tract; Z96.651 Presence of right artificial knee joint; Z86.718 Personal history of other venous thrombosis and embolism; Z79.899 Other long term (current) drug therapy

== ENCOUNTER 2022-07-30 18:27 | Emergency (ER) | payer OTHER, MEDICAID ==
[~2022-07-30] VITALS: Ht 162.5 cm; Wt 95.3 kg
[2022-07-30 20:11] LABS: BASO # 0.1 10*3/uL (0.0-0.1); BASO % 0.5 % (0.0-1.0); EOS # 0.5 10*3/uL (0.0-0.4); EOS % 4.9 % (1.0-4.0); HEMATOCRIT 47.4 % (37.0-47.0); LYMPH # 2.4 10*3/uL (1.3-4.4); LYMPH % 26.6 % (27.0-41.0); MEAN CELL VOLUME 92.9 fl (81.0-99.0); MEAN CORPUSCULAR HGB 29.8 pg (27.0-31.0); MEAN CORPUSCULAR HGB CONC 32.1 g/dl (33.0-37.0); MEAN PLATELET VOLUME 10.2 fl (9.6-12.3); MONO # 0.7 10*3/uL (0.1-1.0); MONO % 7.7 % (3.0-9.0); NEUT # 5.5 10*3/uL (2.3-7.9); PLATELET COUNT AUTOMATED 260 10*3/uL (130-400); RED CELL DISTRI WIDTH 14.7 % (0-14.5); WHITE BLOOD COUNT 9.2 10*3/uL (4.8-10.8)
[2022-07-30 20:34] LABS: ALKALINE PHOSPHATASE 134 U/L (46-116); BUN 17 mg/dl (9-23); CHLORIDE 101 mmol/L (98-107); POTASSIUM 4.8 mmol/L (3.4-5.1); SGPT/ALT 44 U/L (10-49); TOTAL PROTEIN 6.7 gm/dL (6.0-8.0)
== END 2022-07-30 22:31 | disposition home or self-care (01) ==
LOC: ED 18:27
PROVIDERS: Internal Medicine
DX: I50.9 Heart failure, unspecified (principal); R79.89 Other specified abnormal findings of blood chemistry; F41.9 Anxiety disorder, unspecified; I11.0 Hypertensive heart disease with heart failure; E11.65 Type 2 diabetes mellitus with hyperglycemia; Z79.4 Long term (current) use of insulin; F32.A Depression, unspecified; E78.00 Pure hypercholesterolemia, unspecified; Z91.041 Radiographic dye allergy status; Z96.651 Presence of right artificial knee joint; Z98.890 Other specified postprocedural states; Z90.49 Acquired absence of other specified parts of digestive tract

== ENCOUNTER 2022-08-12 18:08 | Inpatient (IN) | payer OTHER, MEDICAID ==
[~2022-08-12] VITALS: Ht 162.5 cm; Wt 93.5 kg
[2022-08-12 18:25] VITALS: BP 130/81
[2022-08-12 18:53] LABS: BASO % 0.3 % (0.0-1.0); EOS # 0.1 10*3/uL (0.0-0.4); HEMATOCRIT 49.4 % (37.0-47.0); LYMPH # 2.3 10*3/uL (1.3-4.4); LYMPH % 22.7 % (27.0-41.0); MEAN CELL VOLUME 92.2 fl (81.0-99.0); MEAN CORPUSCULAR HGB 29.7 pg (27.0-31.0); MEAN CORPUSCULAR HGB CONC 32.2 g/dl (33.0-37.0); MONO # 0.9 10*3/uL (0.1-1.0); MONO % 8.9 % (3.0-9.0); NEUT # 6.7 10*3/uL (2.3-7.9); NEUT % 66.8 % (47.0-73.0); PLATELET COUNT AUTOMATED 269 10*3/uL (130-400); RED BLOOD COUNT 5.36 10*6/uL (4.10-5.10)
[2022-08-12 19:16] LABS: ALKALINE PHOSPHATASE 169 U/L (46-116); BUN 14 mg/dl (9-23); CHLORIDE 96 mmol/L (98-107); SGPT/ALT 80 U/L (10-49); TOTAL PROTEIN 6.7 gm/dL (6.0-8.0)
[2022-08-12] MEDS ORDERED: BYDUREON B2 MG/0.85 SQ (22:10)
[2022-08-13 03:51] LABS: BASO % 0.2 % (0.0-1.0); EOS # 0.1 10*3/uL (0.0-0.4); EOS % 1.3 % (1.0-4.0); HEMATOCRIT 46.1 % (37.0-47.0); LYMPH # 2.7 10*3/uL (1.3-4.4); LYMPH % 28.6 % (27.0-41.0); MEAN CELL VOLUME 90.4 fl (81.0-99.0); MEAN CORPUSCULAR HGB 29.2 pg (27.0-31.0); MEAN CORPUSCULAR HGB CONC 32.3 g/dl (33.0-37.0); MEAN PLATELET VOLUME 9.8 fl (9.6-12.3); MONO # 1.1 10*3/uL (0.1-1.0); MONO % 11.1 % (3.0-9.0); NEUT # 5.6 10*3/uL (2.3-7.9); NEUT % 58.5 % (47.0-73.0); PLATELET COUNT AUTOMATED 255 10*3/uL (130-400); RED CELL DISTRI WIDTH 14.6 % (0-14.5); WHITE BLOOD COUNT 9.5 10*3/uL (4.8-10.8)
[2022-08-13 04:05] LABS: INTERNATIONAL NORM RATIO 1.4 (2.0-3.5)
[2022-08-13 04:17] LABS: ALKALINE PHOSPHATASE 162 U/L (46-116); BUN 18 mg/dl (9-23); CHLORIDE 98 mmol/L (98-107); CHOLESTEROL 113 mg/dL (<200); FREE T4 1.09 ng/dl (0.89-1.76); LDL CHOLESTEROL 64 mg/dL (9-159); POTASSIUM 3.4 mmol/L (3.4-5.1); SGPT/ALT 71 U/L (10-49); THYROID STIM HORMONE (HS) 2.042 uIU/ml (0.550-4.780); TOTAL PROTEIN 6.2 gm/dL (6.0-8.0); TRIGLYCERIDES 113 mg/dl (<150)
[2022-08-13 04:18] LABS: VITAMIN D, 25-HYDROXY 52.6 ng/mL (30-100)
[2022-08-13 06:49] VITALS: BP 113/72
[2022-08-13 10:15] VITALS: BP 105/64
[2022-08-13 14:40] VITALS: BP 122/74
[2022-08-13 16:00] VITALS: BP 122/74
[2022-08-13 20:00] VITALS: BP 112/67
[2022-08-14] VITALS: BP 119/88
[2022-08-14 06:14] LABS: ALKALINE PHOSPHATASE 153 U/L (46-116); BUN 14 mg/dl (9-23); CHLORIDE 102 mmol/L (98-107); POTASSIUM 3.4 mmol/L (3.4-5.1); SGPT/ALT 60 U/L (10-49); TOTAL PROTEIN 6.4 gm/dL (6.0-8.0)
[2022-08-14 06:18] LABS: BASO % 0.2 % (0.0-1.0); EOS # 0.2 10*3/uL (0.0-0.4); EOS % 1.9 % (1.0-4.0); HEMATOCRIT 46.7 % (37.0-47.0); LYMPH # 2.8 10*3/uL (1.3-4.4); LYMPH % 31.6 % (27.0-41.0); MEAN CELL VOLUME 90.2 fl (81.0-99.0); MEAN CORPUSCULAR HGB 29.7 pg (27.0-31.0); MEAN PLATELET VOLUME 10.5 fl (9.6-12.3); MONO # 0.9 10*3/uL (0.1-1.0); NEUT # 4.9 10*3/uL (2.3-7.9); PLATELET COUNT AUTOMATED 263 10*3/uL (130-400); RED BLOOD COUNT 5.18 10*6/uL (4.10-5.10); RED CELL DISTRI WIDTH 14.9 % (0-14.5); WHITE BLOOD COUNT 8.8 10*3/uL (4.8-10.8)
[2022-08-14 08:00] VITALS: BP 129/88
[2022-08-14 12:00] VITALS: BP 111/77
[2022-08-14 16:00] VITALS: BP 108/59
[2022-08-14 20:00] VITALS: BP 94/64
[2022-08-15] VITALS: BP 108/63
[2022-08-15 06:27] LABS: ALKALINE PHOSPHATASE 149 U/L (46-116); BUN 16 mg/dl (9-23); CHLORIDE 100 mmol/L (98-107); POTASSIUM 3.3 mmol/L (3.4-5.1); SGPT/ALT 46 U/L (10-49); TOTAL PROTEIN 6.4 gm/dL (6.0-8.0)
[2022-08-15 08:00] VITALS: BP 107/82
[2022-08-15 12:00] VITALS: BP 95/69
[2022-08-15 16:00] VITALS: BP 121/54
[2022-08-15 20:00] VITALS: BP 115/73
[2022-08-16] VITALS: BP 94/65
[2022-08-16 07:29] LABS: ALKALINE PHOSPHATASE 164 U/L (46-116); BUN 18 mg/dl (9-23); CHLORIDE 102 mmol/L (98-107); SGPT/ALT 40 U/L (10-49); TOTAL PROTEIN 6.2 gm/dL (6.0-8.0)
[2022-08-16 08:00] VITALS: BP 94/61
[2022-08-16 12:00] VITALS: BP 104/72
[2022-08-16 15:23] VITALS: BP 122/72
[2022-08-16] MEDS ORDERED: ENTRESTO 24 MG1 EACH PO (16:01)
[2022-08-16] MEDS ORDERED: ALDACTONE25 MG PO (16:01)
[2022-08-16] MEDS ORDERED: CEPHALEXIN500 M1 PO (16:01)
[2022-08-16] MEDS ORDERED: ASPIRIN ADULT L81 M2 PO (16:01)
[2022-08-16 20:00] VITALS: BP 115/70
[2022-08-17] VITALS: BP 98/77
[2022-08-17 06:16] LABS: BUN 17 mg/dl (9-23); CHLORIDE 101 mmol/L (98-107); POTASSIUM 3.3 mmol/L (3.4-5.1)
[2022-08-17 08:00] VITALS: BP 102/68
[2022-08-17 12:00] VITALS: BP 106/58
[2022-08-17 16:00] VITALS: BP 102/65
[2022-08-17 20:00] VITALS: BP 102/67
[2022-08-18] VITALS: BP 97/63
== END 2022-08-18 05:30 | disposition short-term general hospital (02) | DRG 280 ==
LOC: ED 18:08 → EDHOLD 19:50 → 4E 19:50
PROVIDERS: Family Medicine; Internal Medicine; Student in an Organized Health Care Education/Training Program; ADMIT Student in an Organized Health Care Education/Training Program; ATTEND Student in an Organized Health Care Education/Training Program
DX: I11.0 Hypertensive heart disease with heart failure (principal); I21.4 Non-ST elevation (NSTEMI) myocardial infarction; I50.23 Acute on chronic systolic (congestive) heart failure; K72.00 Acute and subacute hepatic failure without coma; E87.1 Hypo-osmolality and hyponatremia; E44.1 Mild protein-calorie malnutrition; L03.311 Cellulitis of abdominal wall; I42.8 Other cardiomyopathies; F17.210 Nicotine dependence, cigarettes, uncomplicated; E83.41 Hypermagnesemia; E87.6 Hypokalemia; E66.09 Other obesity due to excess calories; E87.8 Other disorders of electrolyte and fluid balance, not elsewhere classified; Z96.651 Presence of right artificial knee joint; E83.42 Hypomagnesemia; R74.01 Elevation of levels of liver transaminase levels; I34.0 Nonrheumatic mitral (valve) insufficiency; I25.10 Atherosclerotic heart disease of native coronary artery without angina pectoris; E11.65 Type 2 diabetes mellitus with hyperglycemia; E78.5 Hyperlipidemia, unspecified; F41.9 Anxiety disorder, unspecified; J30.2 Other seasonal allergic rhinitis; F32.9 Major depressive disorder, single episode, unspecified; Z86.718 Personal history of other venous thrombosis and embolism; Z71.6 Tobacco abuse counseling; Z90.49 Acquired absence of other specified parts of digestive tract; Z95.810 Presence of automatic (implantable) cardiac defibrillator; Z82.49 Family history of ischemic heart disease and other diseases of the circulatory system; Z83.3 Family history of diabetes mellitus; Z79.1 Long term (current) use of non-steroidal anti-inflammatories (NSAID); Z79.51 Long term (current) use of inhaled steroids; Z79.4 Long term (current) use of insulin; Z79.84 Long term (current) use of oral hypoglycemic drugs; Z68.35 Body mass index [BMI] 35.0-35.9, adult

== ENCOUNTER 2022-09-20 22:05 | Emergency (ER) | payer OTHER, MEDICAID ==
[~2022-09-20] VITALS: Ht 162.5 cm; Wt 90.7 kg
[~2022-09-20 22:05] MED LIST changes: +ALDACTONE25 MG PO; +ASPIRIN ADULT L81 M2 PO; +BYDUREON B2 MG/0.85 SQ; +CEPHALEXIN500 M1 PO
== END 2022-09-21 01:41 | disposition home or self-care (01) ==
LOC: ED 22:05
DX: S22.41XA Multiple fractures of ribs, right side, initial encounter for closed fracture (principal); Z95.5 Presence of coronary angioplasty implant and graft; I50.9 Heart failure, unspecified; I11.0 Hypertensive heart disease with heart failure; E11.9 Type 2 diabetes mellitus without complications; Z79.4 Long term (current) use of insulin; F32.A Depression, unspecified; E78.00 Pure hypercholesterolemia, unspecified; Z91.041 Radiographic dye allergy status; Z90.49 Acquired absence of other specified parts of digestive tract; Z98.890 Other specified postprocedural states; Z96.651 Presence of right artificial knee joint; W01.10XA Fall on same level from slipping, tripping and stumbling with subsequent striking against unspecified object, initial encounter; Y93.89 Activity, other specified; Y92.89 Other specified places as the place of occurrence of the external cause; Y99.8 Other external cause status

== ENCOUNTER → 2022-09-24 | Outpatient (CLI) | payer OTHER, MEDICAID ==
[2022-09-24 11:13] LABS: BASO % 0.4 % (0.0-1.0); EOS # 0.1 10*3/uL (0.0-0.4); EOS % 0.7 % (1.0-4.0); HEMATOCRIT 42.3 % (37.0-47.0); LYMPH # 1.7 10*3/uL (1.3-4.4); LYMPH % 24.6 % (27.0-41.0); MEAN CELL VOLUME 91.4 fl (81.0-99.0); MEAN CORPUSCULAR HGB 29.4 pg (27.0-31.0); MEAN CORPUSCULAR HGB CONC 32.2 g/dl (33.0-37.0); MEAN PLATELET VOLUME 9.5 fl (9.6-12.3); MONO # 0.7 10*3/uL (0.1-1.0); MONO % 9.7 % (3.0-9.0); NEUT # 4.5 10*3/uL (2.3-7.9); NEUT % 64.3 % (47.0-73.0); PLATELET COUNT AUTOMATED 293 10*3/uL (130-400); RED BLOOD COUNT 4.63 10*6/uL (4.10-5.10); RED CELL DISTRI WIDTH 16.6 % (0-14.5)
[2022-09-24 11:25] LABS: BILIRUBIN Negative (Negative); BLOOD Negative (Negative); CLARITY Clear (Clear); COLOR Yellow (Yellow); GLUCOSE 3+ (Negative); KETONE Negative (Negative); LEUKO ESTERASE Negative (Negative); NITRITE Negative (Negative); PH 5.5 (4.5-8.0); SPECIFIC GRAVITY >= 1.030 (1.001-1.030); UROBILINOGEN 0.2 E.U./dl (0.0-1.0)
[2022-09-24 11:45] LABS: ALKALINE PHOSPHATASE 173 U/L (46-116); BUN 23 mg/dl (9-23); CHLORIDE 99 mmol/L (98-107); CHOLESTEROL 101 mg/dL (<200); LDL CHOLESTEROL 30 mg/dL (9-159); SGPT/ALT 22 U/L (10-49); TOTAL PROTEIN 6.6 gm/dL (6.0-8.0); TRIGLYCERIDES 176 mg/dl (<150)
[2022-09-24 12:00] LABS: BACTERIA TRACE; EPITHELIAL CELLS 0-2; WBC 0-2 wbc/hpf (0-5); YEAST TRACE
== END | disposition home or self-care (01) ==
LOC: LAB 10:28
PROVIDERS: ATTEND Nurse Practitioner Family
DX: S22.31XS Fracture of one rib, right side, sequela (principal); I11.0 Hypertensive heart disease with heart failure; I50.33 Acute on chronic diastolic (congestive) heart failure; R53.81 Other malaise; E11.59 Type 2 diabetes mellitus with other circulatory complications; R06.02 Shortness of breath; X58.XXXS Exposure to other specified factors, sequela

== ENCOUNTER 2023-01-20 18:59 | Inpatient (IN) | payer OTHER, MEDICAID ==
[~2023-01-20] VITALS: Ht 162.6 cm; Wt 96.8 kg
[2023-01-20] MEDS ORDERED: SOAANZ20 M1 PO (19:19)
[2023-01-20 19:20] VITALS: BP 113/80
[2023-01-20] MEDS ORDERED: MIDODRINE HCL5 M1 PO (19:20)
[2023-01-20 19:56] LABS: BASO # 0.1 10*3/uL (0.0-0.1); BASO % 1.2 % (0.0-1.0); EOS # 0.1 10*3/uL (0.0-0.4); HEMATOCRIT 46.8 % (37.0-47.0); LYMPH # 2.4 10*3/uL (1.3-4.4); LYMPH % 41.3 % (27.0-41.0); MEAN CELL VOLUME 81.3 fl (81.0-99.0); MEAN CORPUSCULAR HGB 25.3 pg (27.0-31.0); MEAN CORPUSCULAR HGB CONC 31.2 g/dl (33.0-37.0); MEAN PLATELET VOLUME 9.3 fl (9.6-12.3); MONO # 0.6 10*3/uL (0.1-1.0); MONO % 9.6 % (3.0-9.0); NEUT # 2.8 10*3/uL (2.3-7.9); NEUT % 46.7 % (47.0-73.0); PLATELET COUNT AUTOMATED 276 10*3/uL (130-400); RED BLOOD COUNT 5.76 10*6/uL (4.10-5.10); RED CELL DISTRI WIDTH 20.1 % (0-14.5); WHITE BLOOD COUNT 5.9 10*3/uL (4.8-10.8)
[2023-01-20 20:09] LABS: ACT PARTIAL THROMBO TIME 29.6 SECONDS (20.0-32.1)
[2023-01-20 20:28] LABS: POTASSIUM 4.7 mmol/L (3.4-5.1); TOTAL PROTEIN 7.3 gm/dL (6.0-8.0)
[2023-01-20 21:26] LABS: BILIRUBIN 1+ (Negative); BLOOD 2+ (Negative); CLARITY Cloudy (Clear); COLOR Dark Yellow (Yellow); GLUCOSE 3+ (Negative); KETONE Negative (Negative); LEUKO ESTERASE Negative (Negative); NITRITE Negative (Negative); SPECIFIC GRAVITY >= 1.030 (1.001-1.030)
[2023-01-20 21:37] LABS: BACTERIA 1+; RBC 21-30 rbc/hpf (0-2)
[2023-01-21 00:50] VITALS: BP 106/75
[2023-01-21] MEDS ORDERED: NITROSTAT0.3 M1 SL (03:09)
[2023-01-21 04:03] VITALS: BP 112/81
[2023-01-21 07:01] LABS: POTASSIUM 4.5 mmol/L (3.4-5.1)
[2023-01-21 07:05] LABS: BASO # 0.1 10*3/uL (0.0-0.1); BASO % 1.2 % (0.0-1.0); EOS # 0.1 10*3/uL (0.0-0.4); EOS % 1.4 % (1.0-4.0); HEMATOCRIT 47.5 % (37.0-47.0); LYMPH # 2.5 10*3/uL (1.3-4.4); LYMPH % 38.3 % (27.0-41.0); MEAN CELL VOLUME 81.3 fl (81.0-99.0); MEAN CORPUSCULAR HGB 25.2 pg (27.0-31.0); MEAN CORPUSCULAR HGB CONC 30.9 g/dl (33.0-37.0); MEAN PLATELET VOLUME 9.4 fl (9.6-12.3); MONO # 0.7 10*3/uL (0.1-1.0); MONO % 10.1 % (3.0-9.0); NEUT # 3.2 10*3/uL (2.3-7.9); NEUT % 48.7 % (47.0-73.0); PLATELET COUNT AUTOMATED 269 10*3/uL (130-400); RED BLOOD COUNT 5.84 10*6/uL (4.10-5.10); RED CELL DISTRI WIDTH 20.4 % (0-14.5); WHITE BLOOD COUNT 6.6 10*3/uL (4.8-10.8)
[2023-01-21 07:46] VITALS: BP 101/77
[2023-01-21 13:17] VITALS: BP 112/73
[2023-01-21 17:30] VITALS: BP 120/62
[2023-01-21 20:00] VITALS: BP 110/61
[2023-01-22] VITALS: BP 121/76
[2023-01-22 07:29] LABS: BASO # 0.1 10*3/uL (0.0-0.1); BASO % 0.8 % (0.0-1.0); EOS # 0.2 10*3/uL (0.0-0.4); HEMATOCRIT 44.7 % (37.0-47.0); LYMPH # 2.6 10*3/uL (1.3-4.4); LYMPH % 41.5 % (27.0-41.0); MEAN CELL VOLUME 81.1 fl (81.0-99.0); MEAN CORPUSCULAR HGB 24.7 pg (27.0-31.0); MEAN CORPUSCULAR HGB CONC 30.4 g/dl (33.0-37.0); MEAN PLATELET VOLUME 9.4 fl (9.6-12.3); MONO # 0.7 10*3/uL (0.1-1.0); MONO % 11.7 % (3.0-9.0); NEUT # 2.7 10*3/uL (2.3-7.9); NEUT % 42.8 % (47.0-73.0); PLATELET COUNT AUTOMATED 271 10*3/uL (130-400); RED BLOOD COUNT 5.51 10*6/uL (4.10-5.10); RED CELL DISTRI WIDTH 20.7 % (0-14.5); WHITE BLOOD COUNT 6.2 10*3/uL (4.8-10.8)
[2023-01-22 08:00] VITALS: BP 95/59
[2023-01-22 08:18] LABS: BUN 23 mg/dl (9-23); CHLORIDE 103 mmol/L (98-107)
[2023-01-22 08:50] LABS: POTASSIUM 3.5 mmol/L (3.4-5.1)
[2023-01-22 12:00] VITALS: BP 98/55
[2023-01-22 16:00] VITALS: BP 135/63
[2023-01-22 20:00] VITALS: BP 106/57
[2023-01-23] VITALS: BP 100/74
[2023-01-23 08:00] VITALS: BP 111/71
[2023-01-23 08:13] LABS: BUN 20 mg/dl (9-23); CHLORIDE 103 mmol/L (98-107); POTASSIUM 3.3 mmol/L (3.4-5.1)
[2023-01-23 12:00] VITALS: BP 104/70
[2023-01-23 16:00] VITALS: BP 102/75
[2023-01-23 20:00] VITALS: BP 109/53
[2023-01-24] VITALS: BP 110/62
[2023-01-24 08:00] VITALS: BP 117/56; BP 90/74
[2023-01-24 08:25] LABS: ALKALINE PHOSPHATASE 130 U/L (46-116); BUN 23 mg/dl (9-23); CHLORIDE 104 mmol/L (98-107); SGPT/ALT 26 U/L (5-49); TOTAL PROTEIN 6.5 gm/dL (6.0-8.0)
[2023-01-24 08:29] LABS: POTASSIUM 4.9 mmol/L (3.4-5.1)
[2023-01-24 11:47] VITALS: BP 122/96
[2023-01-24 16:00] VITALS: BP 95/74
[2023-01-24 20:00] VITALS: BP 93/54
[2023-01-25] VITALS: BP 108/73
[2023-01-25 07:23] LABS: BUN 31 mg/dl (9-23); CHLORIDE 99 mmol/L (98-107); POTASSIUM 4.7 mmol/L (3.4-5.1)
[2023-01-25 08:00] VITALS: BP 91/60
[2023-01-25 12:00] VITALS: BP 92/61
[2023-01-25 15:42] VITALS: BP 98/63
[2023-01-25 20:00] VITALS: BP 94/62
[2023-01-26] VITALS: BP 107/85
[2023-01-26 06:24] LABS: BASO % 0.3 % (0.0-1.0); EOS # 0.2 10*3/uL (0.0-0.4); EOS % 2.3 % (1.0-4.0); HEMATOCRIT 45.2 % (37.0-47.0); LYMPH % 31.8 % (27.0-41.0); MEAN CELL VOLUME 82.5 fl (81.0-99.0); MEAN CORPUSCULAR HGB 25.5 pg (27.0-31.0); MEAN PLATELET VOLUME 9.4 fl (9.6-12.3); MONO # 1.4 10*3/uL (0.1-1.0); MONO % 15.4 % (3.0-9.0); NEUT # 4.7 10*3/uL (2.3-7.9); NUCLEATED RED BLOOD CELL 0.2 % (0.0-0.0); PLATELET COUNT AUTOMATED 308 10*3/uL (130-400); RED BLOOD COUNT 5.48 10*6/uL (4.10-5.10); RED CELL DISTRI WIDTH 21.3 % (0-14.5); WHITE BLOOD COUNT 9.3 10*3/uL (4.8-10.8)
[2023-01-26 06:42] LABS: BUN 24 mg/dl (9-23); CHLORIDE 102 mmol/L (98-107); POTASSIUM 4.2 mmol/L (3.4-5.1)
[2023-01-26 08:00] VITALS: BP 123/87
[2023-01-26] MEDS ORDERED: AMPICILLIN500 MG PO (11:40)
[2023-01-26] MEDS ORDERED: CLOPIDOGREL75 MG PO (11:40)
[2023-01-26 12:00] VITALS: BP 100/76
== END 2023-01-26 15:42 | disposition home or self-care (01) | DRG 291 ==
LOC: ED 18:59 → EDHOLD 22:58 → 5E 22:58
PROVIDERS: Family Medicine; Internal Medicine; Student in an Organized Health Care Education/Training Program; ADMIT Family Medicine; ATTEND Family Medicine
DX: I11.0 Hypertensive heart disease with heart failure (principal); I50.23 Acute on chronic systolic (congestive) heart failure; N17.0 Acute kidney failure with tubular necrosis; E87.1 Hypo-osmolality and hyponatremia; N39.0 Urinary tract infection, site not specified; E87.20 Acidosis, unspecified; I25.810 Atherosclerosis of coronary artery bypass graft(s) without angina pectoris; R18.8 Other ascites; I49.3 Ventricular premature depolarization; F41.9 Anxiety disorder, unspecified; E11.65 Type 2 diabetes mellitus with hyperglycemia; E80.6 Other disorders of bilirubin metabolism; R31.9 Hematuria, unspecified; E55.9 Vitamin D deficiency, unspecified; F32.9 Major depressive disorder, single episode, unspecified; E78.5 Hyperlipidemia, unspecified; Z96.651 Presence of right artificial knee joint; K74.60 Unspecified cirrhosis of liver; Z91.041 Radiographic dye allergy status; Z95.0 Presence of cardiac pacemaker; Z90.49 Acquired absence of other specified parts of digestive tract; Z87.891 Personal history of nicotine dependence; Z82.49 Family history of ischemic heart disease and other diseases of the circulatory system; Z95.5 Presence of coronary angioplasty implant and graft; Z79.82 Long term (current) use of aspirin; Z79.899 Other long term (current) drug therapy; Z86.718 Personal history of other venous thrombosis and embolism; I25.2 Old myocardial infarction

== ENCOUNTER 2023-03-16 00:12 | Emergency (ER) | payer OTHER, MEDICAID ==
[~2023-03-16] VITALS: Wt 108.3 kg
[~2023-03-16 00:12] MED LIST changes: +AMPICILLIN500 MG PO; +AVPAK AZITHROM250 M1 PO; +BENZONATATE100 M1 PO; +CLOPIDOGREL75 MG PO; +HUMULIN R100 UNIT/1 IJ; +HUMULIN R100 UNIT/1 IV; +K-TAB10 MEQ PO; +LASIX20 MG PO; +MIDODRINE HCL5 M1 PO; +NITROSTAT0.3 M1 SL; +OZEMPIC1 MG/0.71 SQ; +PANTOPRAZOLE SO40 MG PO; +ROPINIROLE HY0.25 MG PO; +SOAANZ20 M1 PO; +TOPROL XL25 MG PO; +TORSEMIDE20 MG PO; +VITAMIN D310 MC3 PO
[2023-03-16 00:56] LABS: HEMATOCRIT 33.4 % (37.0-47.0); MEAN CELL VOLUME 87.2 fl (81.0-99.0); MEAN CORPUSCULAR HGB 24.5 pg (27.0-31.0); MEAN CORPUSCULAR HGB CONC 28.1 g/dl (33.0-37.0); NUCLEATED RED BLOOD CELL 0.1 10*3/uL (0.0-0.0); NUCLEATED RED BLOOD CELL 1.1 % (0.0-0.0); PLATELET COUNT AUTOMATED 335 10*3/uL (130-400); RED BLOOD COUNT 3.83 10*6/uL (4.10-5.10); RED CELL DISTRI WIDTH 22.2 % (0-14.5); WHITE BLOOD COUNT 7.1 10*3/uL (4.8-10.8)
[2023-03-16 00:57] LABS: MANUAL DIFF REFLEX YES
[2023-03-16 01:07] LABS: ACT PARTIAL THROMBO TIME 25.3 SECONDS (20.0-32.1)
[2023-03-16 01:14] LABS: ALKALINE PHOSPHATASE 242 U/L (46-116); BUN 39 mg/dl (9-23); CHLORIDE 103 mmol/L (98-107); POTASSIUM 4.3 mmol/L (3.4-5.1); SGPT/ALT 37 U/L (5-49); TOTAL PROTEIN 6.4 gm/dL (6.0-8.0)
[2023-03-16 01:27] LABS: BASOPHILS 1 % (0-1); BURR CELLS MODERATE; PLATELET SUFFICIENCY NORMAL (NORMAL); POLYCHROMASIA SLIGHT; SCHISTOCYTES FEW; TOTAL CELLS COUNTED 100 #CELLS
== END 2023-03-16 11:51 ==
LOC: ED 00:12
PROVIDERS: Emergency Medicine
DX: R07.89 Other chest pain (principal); E11.9 Type 2 diabetes mellitus without complications; I50.9 Heart failure, unspecified; I25.10 Atherosclerotic heart disease of native coronary artery without angina pectoris; F32.A Depression, unspecified; E78.5 Hyperlipidemia, unspecified; Z91.041 Radiographic dye allergy status; Z79.899 Other long term (current) drug therapy; Z79.82 Long term (current) use of aspirin; Z79.4 Long term (current) use of insulin; Z96.651 Presence of right artificial knee joint; Z95.0 Presence of cardiac pacemaker; Z90.49 Acquired absence of other specified parts of digestive tract; Z87.891 Personal history of nicotine dependence

== ENCOUNTER → 2023-05-24 | Outpatient (CLI) | payer OTHER, MEDICAID ==
[~2023-05-24] MED LIST changes: +ATORVASTATIN CA80 M1 PO; +NOVOLIN 70100 UNIT/1 SQ; +SODIUM BICARBONATE 4.2% 5 ML VIAL ONE; +VICTOZA 3-0.6 MG/0.1 SC
== END | disposition home or self-care (01) ==
LOC: EDSTATUS 11:00
PROVIDERS: ATTEND Internal Medicine
DX: R18.8 Other ascites (principal); K74.60 Unspecified cirrhosis of liver

== ENCOUNTER → 2023-06-01 | Outpatient (CLI) | payer OTHER, MEDICAID ==
[~2023-06-01] MED LIST changes: -SODIUM BICARBONATE 4.2% 5 ML VIAL ONE
== END ==
LOC: EDSTATUS 11:00
PROVIDERS: ATTEND Internal Medicine
DX: R18.8 Other ascites (principal)

== ENCOUNTER → 2023-06-08 | Outpatient (CLI) | payer OTHER, MEDICAID | END | disposition home or self-care (01) | LOC: EDSTATUS 11:00 | PROVIDERS: ATTEND Internal Medicine | DX: R18.8 Other ascites (principal); K74.60 Unspecified cirrhosis of liver ==

== ENCOUNTER → 2023-06-15 | Outpatient (CLI) | payer OTHER, MEDICAID | END | disposition home or self-care (01) | LOC: EDSTATUS 11:00 | PROVIDERS: ATTEND Internal Medicine | DX: R18.8 Other ascites (principal) ==

== ENCOUNTER → 2023-06-22 | Outpatient (CLI) | payer OTHER, MEDICAID ==
[~2023-06-22] MED LIST changes: +SODIUM BICARBONATE 4.2% 5 ML VIAL ONE
== END | disposition home or self-care (01) ==
LOC: EDSTATUS 06-23 11:00
PROVIDERS: ATTEND Internal Medicine
DX: R18.8 Other ascites (principal); K74.60 Unspecified cirrhosis of liver